=== PATIENT | female | born 1990 ===

== ENCOUNTER 2021-09-22 16:32 | Emergency (ER) | payer SELFPAY ==
[~2021-09-22] VITALS: Ht 172.7 cm; Wt 104.3 kg
[2021-09-22 16:53] VITALS: BP 143/101
[2021-09-22] MEDS ORDERED: KETOROLAC TROMETH 30 MG/ML 1ML VIAL IV ONE (18:45)
[2021-09-22] MEDS ORDERED: SODIUM CHLORIDE 0.9% 1,000 ML IV ONE (18:45)
[2021-09-22] MEDS ORDERED: MORPHINE SULFATE 4 MG/ML SYR/VIAL IV ONE (18:45)
[2021-09-22] MEDS ORDERED: ONDANSETRON HCL 4 MG/2 ML VIAL IV ONE (18:45)
== END 2021-09-22 20:32 | disposition left against medical advice (07) ==
LOC: ER 16:32
DX: R10.9 Unspecified abdominal pain (principal); R11.2 Nausea with vomiting, unspecified; Z53.29 Procedure and treatment not carried out because of patient's decision for other reasons
CPT/HCPCS: 74176; J1885; J2405